=== PATIENT | male | born 1970 | race Caucasian/White ===

== ENCOUNTER 2017-01-31 06:33 | Day surgery (SDC) | payer OTHER ==
[~2017-01-31] VITALS: Ht 188 cm; Wt 83.0 kg
[~2017-01-31 06:33] MED LIST: BACITRACIN 50,000 UNIT in IV NORMAL SALINE 1000ML BAG 1,000 ML IRR ONE; VANCOMYCIN 1GM IVPB FOR OMNI 250 ML IV ONE
[2017-01-31] MEDS ORDERED: BUPIVACAINE 0.5% 50 ML VIAL. ONE (06:44)
[2017-01-31] MEDS ORDERED: LIDOCAINE 1%/EPI 1:100,000 20 ML VIAL. ONE (06:44)
[2017-01-31] MEDS ORDERED: BUPIVACAINE MPF 0.5% 30 ML VIAL. ONE (06:45)
[2017-01-31] MEDS ORDERED: GELATIN SPONGE SIZE 100. ONE (06:46)
[2017-01-31] MEDS ORDERED: THROMBIN 20,000 UNIT SPRAY.SYRN KIT TP ONE (06:46)
[2017-01-31] MEDS ORDERED: POVIDONE-IODINE 10% TOPICAL OINTMENT 28GM TUBE. TP ONE (06:46)
[2017-01-31] MEDS ORDERED: LIDOCAINE 1% 1 ML SYRINGE. ID PRN (07:00)
[2017-01-31] MEDS ORDERED: ONDANSETRON PF 4 MG/2 ML VIAL. IV PRN (07:00)
[2017-01-31] MEDS ORDERED: PROCHLORPERAZINE 10 MG/2 ML VIAL. IV PRN (07:00)
[2017-01-31] MEDS ORDERED: FENTANYL PF 100 MCG/2 ML VIAL. IV PRN (07:00)
[2017-01-31] MEDS ORDERED: IV RINGERS,LACTATED 1000ML 1,000 ML IV SCH (07:00)
[2017-01-31] MEDS ORDERED: VANCOMYCIN 1GM IVPB FOR OMNI 250 ML ONE (07:16)
[2017-01-31] MEDS ORDERED: TRAM50TA PO (07:21)
[2017-01-31] MEDS ORDERED: CALC200T3 PO (07:22)
[2017-01-31] MEDS ORDERED: IBUP-1027 PO (07:22)
[2017-01-31] MEDS ORDERED: PROPOFOL 100 ML IV ONE (08:04)
[2017-01-31] MEDS ORDERED: DESFLURANE > 120 MINUTES IH ONE (08:12)
[2017-01-31] MEDS ORDERED: MIDAZOLAM HCL 2 MG/2 ML VIAL. ONE (08:13)
[2017-01-31] MEDS ORDERED: REMIFENTANIL 2 MG VIAL. IV ONE (08:13)
[2017-01-31] MEDS ORDERED: FENTANYL PF 100 MCG/2 ML VIAL. ONE (08:13)
[2017-01-31] MEDS ORDERED: 0.9 % SODIUM CHLORIDE 50 ML VIAL. IJ ONE (08:14)
[2017-01-31] MEDS ORDERED: PROPOFOL 20 ML IV ONE (08:14)
[2017-01-31] MEDS ORDERED: LIDOCAINE 2% 100 MG/5 ML DISP.SYRIN. ONE (08:14)
[2017-01-31] MEDS ORDERED: ONDANSETRON PF 4 MG/2 ML VIAL. ONE (08:14)
[2017-01-31] MEDS ORDERED: DEXAMETHASONE SOD PHOS 20 MG/5 ML VIAL. ONE (08:14)
[2017-01-31] MEDS ORDERED: ROCURONIUM 50 MG/5 ML VIAL. ONE (08:14)
[2017-01-31] MEDS ORDERED: EPHEDRINE PF IN SALINE 50 MG/5 ML DISP.SYRIN. IV ONE (10:40)
[2017-01-31] MEDS ORDERED: GLYCOPYRROLATE 1 MG/5 ML VIAL. ONE (11:01)
[2017-01-31] MEDS ORDERED: DESFLURANE 61 TO 120 MINUTES IH ONE (11:42)
[2017-01-31] MEDS ORDERED: NEOSTIGMINE METHYLSULFATE 5 MG/5 ML SYRINGE. ONE (11:44)
--- NOTE | 2017-01-31 11:51 | PDOC ---
BRIEF OPERATIVE NOTE Date: Jan 31, 2017 Pre-Op Diagnosis left C6-7 neuroforaminal stenosis, cervical radiculopathy Post-Op Diagnosis same Procedure Performed left C6-7 foraminotomy Surgeon Wellington Crude Tester none Anesthesia Type: General Blood Loss 5mL Specimens Obtained decompression Findings prominent degenerative stenosis left C6-7 Complications none apparent Additional Remarks neuromonitoring potentials improved at completion of the procedure compared to baseline HERB HESTER MD Jan 31, 2017 11:51
--- NOTE | 2017-01-31 12:03 | DISCH ---
DISCHARGE INSTRUCTIONS Condition on Discharge Condition on Discharge: Stable Activity After Discharge Activity Instructions for Disc: Avoid exertion, Progressive ambulation, Other, see below (avoid any strenuous activity) Lifting Instructions after Dis: Do not lift >10 pounds Wound Incision Care Wound/Incision Care: Keep wound/cast CDI (keep incision clean and dry - do not soak, scrub, or submerge incision; no direct water spray or pressure once dressing removed), Other, see below (may remove dressing day three after surgery , may change as needed) Contacting the DRBert after DC Call your doctor for: Concerns you may have HERB HESTER MD Jan 31, 2017 12:03
[2017-01-31] MEDS: FENTANYL PF 100 MCG/2 ML VIAL. IV PRN ×4 (12:21→12:46)
[2017-01-31] MEDS: MORPHINE SULFATE 2 MG/ML DISP.SYRIN. IV PRN ×5 (12:26→13:07)
[2017-01-31] MEDS ORDERED: METH-38 PO (12:55)
[2017-01-31] MEDS: HYDROMORPHONE 2 MG/ML VIAL. IV PRN ×3 (12:56→13:27)
[2017-01-31] MEDS ORDERED: OXYC-323 PO (12:57)
[2017-01-31] MEDS ORDERED: SENN1TAB7 PO (12:58)
[2017-01-31] MEDS ORDERED: OXYCODONE/APAP 5/325 TABLET. PO ONE (13:15)
[2017-01-31 13:40] VITALS: BP 128/75
--- NOTE | 2017-02-01 16:43 | PATHOLOGY ---
PATHOLOGY REPORT * * * * * * * * FINAL DIAGNOSIS: Segments of fibrocartilaginous tissue and bone, cervical decompression: - Degenerative changes of fibrocartilaginous tissue. COMMENT: There is no evidence of an acute inflammatory process or malignancy. (JPM:csd; d/t: 02/01/2017) REPORT ELECTRONICALLY SIGNED BY: Michael Choudhary M.D. DATE/TIME: 02/01/2017 16:42 * * * * * * * * GROSS PATHOLOGY: Received in formalin labeled "Regulo Cody and cervical decompression," are multiple pieces of blood-tinged, white-hickman, gritty, rubbery, and glistening fibrous tissue measuring 2.3 x 1.5 x 0.3 cm in aggregate dimensions. The tissue is submitted entirely in cassette A1, following decalcification. (TTL; 01/31/2017) INITIAL CPT CODE(S): A; 81820, 20467 Professional services [place] [address] Technical services performed by [facility] at [address] [place] [address]. [facility] fax: attention: Carline Abel SPECIMEN(S) RECEIVED: A.Cervical decompression CLINICAL HISTORY: Radiculopathy, spondylosis PATIENT: REGULO CODY /AGE: 402/19/1970 (Age: 46) PATIENT #: [id number] ALT CASE #: SPECIMEN COLLECTION DATE: 01/31/2017 SPECIMEN RECEIVED DATE: 01/31/2017 [facility] - [address] [place] [address] - PHONE: [phone] * * * END OF REPORT * * *
--- NOTE | 2017-02-01 18:33 | OP ---
DATE OF SURGERY: 01/31/2017 PREOPERATIVE DIAGNOSES: Cervical radiculopathy with cervical neural foraminal stenosis. POSTOPERATIVE DIAGNOSES: Cervical radiculopathy with cervical neural foraminal stenosis. SURGEON: John Hester M.D. RAILROAD CARMAN: None. PROCEDURE: Left cervical 6-7 foraminotomy. ANESTHESIA: General. COMPLICATIONS: None. NOTES: Neuro monitoring was utilized throughout the procedure with noted improvement upon completion of the procedure. INDICATIONS FOR THE PROCEDURE: The patient is a 46-year-old male with left upper extremity pain localized to C7 radicular pattern and has been refractory to nonsurgical treatments. He has prominent neural foraminal stenosis on the left at cervical 6-7. Please refer to the patient chart for additional details. DESCRIPTION OF PROCEDURE: After informed consent was obtained, the patient was brought into the operating room, he was placed under general anesthesia. A Adam head neck surgeon was placed to a pressure of 70 pounds and he was placed prone on the Harley frame. All pressure points were checked and padded appropriately. The head was affixed to the bed in a neutral position. The posterior neck was prepped and draped in usual sterile fashion, baseline potentials were obtained. Fluoroscopy was utilized to verify the most appropriate incision location and a vertical incision centered over the midline at cervical 6-7 was made with a 10 blade scalpel. Monopolar electrocautery was utilized to dissect the avascular midline to the spinous processes of cervical 6-7 unless ____ the lamina dislocation. Level was verified with fluoroscopy prior to the initiation of decompression. A foraminotomy was performed with a partial laminectomy on the left at cervical 6-7. This was performed with a pneumatic drill as well as a Kerrison rongeur. There are significant degenerative changes producing prominent stenosis. The neural foramen at this location and this region was ____ Kerrison rongeur and the nerve root was readily identified and was noted to be well decompressed upon completion of decompression and foraminotomy. This was verified with direct visualization as well as gentle palpation with a small blunt nerve hook. It was also noted that neuro monitoring potentials were improved upon completion of decompression. Once this was complete, pristine hemostasis was achieved with FloSeal, cottonoids and irrigation and Gelfoam thrombin as well as some use of bipolar electrocautery. The wound was generously irrigated with antibiotic irrigation prior to the final closure. The muscles and fascia were then reapproximated with 0 Vicryl in simple interrupted fashion. The subcutaneous tissues were reapproximated with 2-0 Vicryl in interrupted inverted fashion. Skin was reapproximated with marcio. The wound was dressed with Xeroform, Telfa, 4 x4 and Tegaderm. At the end of procedure, all needle and sponge counts were correct times 2. The drapes were taken down and the patient was detached from table and turned supine onto an adjacent bed. Adam head neck surgeon was removed and the pin sites were inspected for hemorrhage. No hemorrhage was observed. Subsequently, extubated in the operating room and taken to recovery in stable condition. There were no intra-procedural complications. JOHN HESTER MD DR: Chelle JOB#: [id number] / [id number]
== END 2017-01-31 14:23 | disposition home or self-care (01) ==
LOC: SURG 06:33
PROVIDERS: ATTEND Neurological Surgery
DX: M54.12 Radiculopathy, cervical region (principal); M48.02 Spinal stenosis, cervical region
CPT/HCPCS: 63045; 76000; J1100; J1170; J2250; J2270; J2405; J2704; J2710; J3010; J3370; J3490; J7030; 88304; 88311